=== PATIENT | male | born 1995 | race Caucasian/White ===

== ENCOUNTER 2017-11-02 01:14 | Emergency (ER) | payer SELFPAY ==
[2017-11-02 01:37] VITALS: TEMP 98
[2017-11-02] MEDS: SODIUM CHLORIDE 0.9% 1000ML 1,000 ML IVS ONE ×2 (01:47→03:02)
[2017-11-02] MEDS: ACTIVATED CHARCOAL PELLETS 25 GM BTTL PO ONE (02:46)
[2017-11-02] MEDS: PEG-ELECTROLYTE 4,000 ML BTTL PO ONE (02:46)
--- NOTE | 2017-11-02 02:55 | ED.PDOC ---
History of Present Illness - General Chief Complaint: GI Problem Stated Complaint: diarrhea Time Seen by Provider: 11/02/17 02:18 Information Source: patient Exam Limitations: no limitations - History of Present Illness Abdominal Pain Onset Location: generalized abdomen Pain Radiation: no radiation Quality: mild Timing/Duration: constant - FOR 4 DAYS Improving Factors: nothing Worsening Factors: nothing Associated Symptoms: diarrhea, other - has been using meth as recently as yesterday Review of Systems - Review of Systems Constitutional: States: weakness EENTM: States: no symptoms reported Respiratory: States: no symptoms reported Cardiology: States: no symptoms reported Gastrointestinal/Abdominal: States: abdominal pain, diarrhea. Denies: nausea, vomiting Genitourinary: States: other - DECREASED URINE OUTPUT. Denies: dysuria, frequency, hematuria Musculoskeletal: States: no symptoms reported Skin: States: no symptoms reported Neurological: States: no symptoms reported Endocrine: States: no symptoms reported Past Medical History (General) - Patient Medical History Hx Cardiac Disorders: Yes - heart murmur Hx Diabetes: No Hx Hepatitis C: Yes Surgical History: no surgical history - Vaccination History Immunizations Up to Date: No - Social History Hx Substance Use: Yes - methamphetamines - Triage Comment ED Triage Comment: denies vomiting, states just diarrhea for several days, poor urine output. Family Medical History - Family History Mother Living Status: Physical Exam - Physical Exam General Appearance: Alert, Comfortable Eyes, Ears, Nose, Throat Exam: PERRL/EOMI, pharynx normal, other - dry mucosa Neck: non-tender, full range of motion, supple Respiratory: lungs clear, normal breath sounds Cardiovascular/Chest: normal peripheral pulses, regular rate, rhythm, no edema Gastrointestinal/Abdominal: normal bowel sounds, non tender, soft Neurologic: no motor/sensory deficits, alert, normal mood/affect, oriented x 3 Skin Exam: normal color, warm/dry Departure - Departure Clinical Impression: Drug abuse, amphetamine type, Dehydration Diarrhea Qualifiers: Diarrhea type: unspecified type Qualified Code(s): R19.7 - Diarrhea, unspecified Disposition: Discharge to Home or Self Care Departure Forms: ED Discharge - Pt. Copy, Patient Portal Self Enrollment Prescriptions: Dicyclomine HCl [Bentyl] 20 mg PO Q6HR PRN #15 tab PRN Reason: Diarrhea Home Medications: Ambulatory Orders Dicyclomine HCl [Bentyl] 20 mg PO Q6HR PRN #15 tab 11/02/17
[2017-11-02] MEDS: DICYCLOMINE HCL 20 MG TAB PO ONE (03:02)
[2017-11-02 03:59] VITALS: BP 114/68; O2SAT 100
== END 2017-11-02 03:58 | disposition home or self-care (01) ==
LOC: ER 01:14
DX: E86.0 Dehydration (principal); R19.7 Diarrhea, unspecified; F15.10 Other stimulant abuse, uncomplicated; R01.1 Cardiac murmur, unspecified; Z86.19 Personal history of other infectious and parasitic diseases
CPT/HCPCS: 36415; 80053; 81001; 82150; 83690; 85025; J7030

== ENCOUNTER 2018-04-21 09:19 | Emergency (ER) | payer SELFPAY ==
[2018-04-21] MEDS ORDERED: AZITHROMYCIN 250 MG TAB PO ONE (09:39)
[2018-04-21] MEDS ORDERED: DOXYCYCLINE HYCLATE CAP 100 MG CAP PO ONE (09:39)
[2018-04-21] MEDS ORDERED: cefTRIAXone SODIUM 1 GM VIAL IM ONE (09:39)
[2018-04-21 09:44] VITALS: BP 137/79; TEMP 98.9; O2SAT 100
--- NOTE | 2018-04-21 09:50 | ED.PDOC ---
History of Present Illness - General Chief Complaint: Problem Stated Complaint: Swollen testicles Time Seen by Provider: 04/21/18 09:24 Source: patient Exam Limitations: no limitations - History of Present Illness Initial Comments: The patient is a 23-year-old male presenting to emergency room secondary to dysuria for the last 2-3 weeks. He is concerned he may have an STD. He has had a mild amount of purulent drainage from the urethra. He is now also having pain in the left epididymis. No fevers. Timing/Duration: unsure Severity: moderate Improving Factors: nothing Worsening Factors: nothing Associated Symptoms: denies symptoms Allergies/Adverse Reactions: Allergies NO KNOWN ALLERGY Allergy (Verified 11/02/17 01:37) Home Medications: Ambulatory Orders Dicyclomine HCl [Bentyl] 20 mg PO Q6HR PRN #15 tab 11/02/17 Doxycycline (Monohydrate) [Doxycycline] 100 mg PO BID #14 cap 04/21/18 Review of Systems - Review of Systems Constitutional: States: no symptoms reported EENTM: States: no symptoms reported Respiratory: States: no symptoms reported Cardiology: States: no symptoms reported Gastrointestinal/Abdominal: States: no symptoms reported Genitourinary: States: discharge, dysuria, frequency, pain Musculoskeletal: States: no symptoms reported Skin: States: no symptoms reported Neurological: States: no symptoms reported Endocrine: States: no symptoms reported All other Systems: No Change from Baseline Past Medical History (General) - Patient Medical History Hx Stroke: No Hx Cardiac Disorders: Yes - Heart murmur Hx Congestive Heart Failure: No Hx Diabetes: No Hx Hepatitis C: Yes Surgical History: no surgical history - Vaccination History Hx Influenza Vaccination: No - Social History Hx Tobacco Use: Yes Hx Substance Use: Yes - methamphetamines Family Medical History - Family History Mother Living Status: Physical Exam - Physical Exam General Appearance: Alert, Comfortable, No apparent distress Eye Exam: bilateral normal Ears, Nose, Throat: hearing grossly normal, normal ENT inspection, normal pharynx Neck: full range of motion, supple Respiratory: lungs clear, normal breath sounds, no respiratory distress, no accessory muscle use Cardiovascular/Chest: normal peripheral pulses, no edema, tachycardia - sinus Peripheral Pulses: radial,right: 2+, radial,left: 2+, dorsalis pedis,right: 2+, dorsalis pedis,left: 2+ Gastrointestinal/Abdominal: non tender, soft Rectal Exam: other - left epididymis is tender. Back Exam: no CVA tenderness, no vertebral tenderness Extremity: non-tender, normal inspection, normal capillary refill Neurologic: summer intern II-XII nml as tested, alert, normal mood/affect, oriented x 3 Skin Exam: normal color - multiple tattoos Comments: Vital Signs - 24 hr 04/21/18 09:36 Temperature 98.9 F Pulse Rate [ 123 H Left Brachial] Respiratory 20 Rate Blood Pressure 137/79 [Left Arm] O2 Sat by Pulse 100 Oximetry Progress - Progress Progress: 04/21/18 09:50 the patient is a 23-year-old male presenting with what appears to be epididymitis and likely urethritis. He'll be treated empirically for gonorrhea and chlamydia. This test is being sent out. I would recommend that he follow- up with the public health department for more comprehensive STD testing as he is apparently high risk. He was given a dose of Rocephin and azithromycin and doxycycline here. He'll be placed on doxycycline for the next 7 days as an outpatient. He does need to abstain from intercourse until his regimen is completed and his partners are tested. Departure - Departure Clinical Impression: Epididymitis, Urethritis Disposition: Discharge to Home or Self Care Condition: Fair Departure Forms: ED Discharge - Pt. Copy, Patient Portal Self Enrollment Instructions: Urethritis (DC), Epididymitis (DC) Diet: regular diet Activity: increase activity as tolerated Prescriptions: Doxycycline (Monohydrate) [Doxycycline] 100 mg PO BID #14 cap Home Medications: Ambulatory Orders Dicyclomine HCl [Bentyl] 20 mg PO Q6HR PRN #15 tab 11/02/17 Doxycycline (Monohydrate) [Doxycycline] 100 mg PO BID #14 cap 04/21/18 Additional Instructions: the patient is a 23-year-old male presenting with what appears to be epididymitis and likely urethritis. He'll be treated empirically for gonorrhea and chlamydia. This test is being sent out. I would recommend that he follow- up with the public health department for more comprehensive STD testing as he is apparently high risk. He was given a dose of Rocephin and azithromycin and doxycycline here. He'll be placed on doxycycline for the next 7 days as an outpatient. He does need to abstain from intercourse until his regimen is completed and his partners are tested.
== END 2018-04-21 10:09 | disposition home or self-care (01) ==
LOC: ER 09:19
DX: N45.1 Epididymitis (principal); N34.2 Other urethritis; Z86.19 Personal history of other infectious and parasitic diseases; Z87.891 Personal history of nicotine dependence
CPT/HCPCS: 81001; 87086; 87491; 87591; J0696; Q0144

== ENCOUNTER 2019-05-22 11:41 | Emergency (ER) | payer SELFPAY ==
[2019-05-22 12:18] VITALS: BP 145/98; TEMP 97; O2SAT 98
[2019-05-22] MEDS ORDERED: SULFA/TRIMETH 800/160 (DS) TAB 1 EA TAB PO ONE (13:01)
--- NOTE | 2019-05-22 13:04 | ED.PDOC ---
History of Present Illness - General Chief Complaint: Skin/Abrasion/Tear Stated Complaint: swollen area on knee x 1 week Time Seen by Provider: 05/22/19 13:01 Source: patient Exam Limitations: no limitations - History of Present Illness Initial Comments: the patient is a 24-year-old male presenting to emergency room secondary to an area of cellulitis over his right knee that does have some mild extending erythema. Erythema started extending about 24 hours ago. The abrasion over the knee itself is about 45 days old. He does have multiple other abrasions from an incident around that time. He is also currently getting over a cold. His main concern is the extending erythema around the knee abrasion itself. It does appear that it has drained already a little bit. No evidence of any abscess formation that needs drainage at this time. He does appear to be neurovascularly preserved. Timing/Duration: 24 hours Severity: mild Improving Factors: nothing Worsening Factors: nothing Associated Symptoms: malaise Allergies/Adverse Reactions: Allergies NO KNOWN ALLERGY Allergy (Verified 05/22/19 12:14) Home Medications: Ambulatory Orders Sulfa/Trimeth 800/160 (Ds) Tab [Bactrim DS Tab] 1 ea PO BID #14 tab 05/22/19 Review of Systems - Review of Systems Constitutional: States: malaise EENTM: States: nose congestion Respiratory: States: no symptoms reported Cardiology: States: no symptoms reported Gastrointestinal/Abdominal: States: no symptoms reported Genitourinary: States: no symptoms reported Musculoskeletal: States: see HPI Skin: States: see HPI Neurological: States: no symptoms reported Endocrine: States: no symptoms reported All other Systems: No Change from Baseline Past Medical History (General) - Patient Medical History Hx Seizures: No Hx Stroke: No Hx Dementia: No Hx Asthma: No Hx of COPD: No Hx Cardiac Disorders: No Hx Congestive Heart Failure: No Hx Pacemaker: No Hx Hypertension: No Hx Thyroid Disease: No Hx Diabetes: No Hx Gastroesophageal Reflux: No Hx Renal Disease: No Hx Cancer: No Hx of HIV: No Hx Hepatitis C: No Hx MRSA: No Surgical History: no surgical history - Vaccination History Hx Tetanus, Diphtheria Vaccination: Yes - 2016 tdcj Hx Influenza Vaccination: No Hx Pneumococcal Vaccination: No Immunizations Up to Date: No - Social History Hx Tobacco Use: Yes Hx Chewing Tobacco Use: No Hx Alcohol Use: Yes Hx Substance Use: Yes - iv meth use, last use 1 day ago Hx Depression: Yes Feels Threatened In a Relationship: No Hx Physical Abuse: No Hx Emotional Abuse: No Hx Suspected Abuse: No Family Medical History - Family History Mother Family History: No Known Living Status: Hx Family Asthma: No Hx Family Congestive Heart Failure: No Hx Family Hypertension: No Physical Exam - Physical Exam General Appearance: Alert, Comfortable, No apparent distress Eye Exam: bilateral normal Ears, Nose, Throat: hearing grossly normal, nasal congestion, other - healing abrasion over the bridge of his nose. Neck: full range of motion Respiratory: no respiratory distress, no accessory muscle use Cardiovascular/Chest: normal peripheral pulses, no edema Peripheral Pulses: dorsalis pedis,right: 2+, dorsalis pedis,left: 2+ Rectal Exam: deferred Extremity: normal range of motion, no pedal edema, no calf tenderness, normal capillary refill Neurologic: chief concierge II-XII nml as tested, alert, normal mood/affect, oriented x 3 Skin Exam: other - see history of present illness. Comments: Vital Signs - 8 hr 05/22/19 12:15 Temperature 97 F L Pulse Rate [ 100 H Left Radial] Respiratory 20 Rate Blood Pressure 145/98 [Left Arm] O2 Sat by Pulse 98 Oximetry Progress - Progress Progress: 05/22/19 13:04 the patient is a 24-year-old male presenting to emergency room secondary to a right knee abrasion with superimposed cellulitis. No evidence of abscess formation at this time. Is wanting placed on Bactrim twice daily for the next 7 days which he does need to take with food prevent stomach upset. He does need to trace the area of erythema with a marker when he gets home. If this is extending even past the next 24 hours then he will need a repeat evaluation. Keep well hydrated. ER warnings were given. Wash the area with Dial soap and water a couple of times daily and cover with a triple antibiotic ointment and a Band-Aid. [id number] [id number] Departure - Departure Clinical Impression: Cellulitis Qualifiers: Site of cellulitis: extremity Site of cellulitis of extremity: lower extremity Laterality: right Qualified Code(s): L03.115 - Cellulitis of right lower limb Disposition: Discharge to Home or Self Care Condition: Fair Departure Forms: ED Discharge - Pt. Copy, Patient Portal Self Enrollment Instructions: DI for Wound Infection Diet: regular diet Activity: increase activity as tolerated Referrals: UNKNOWN,PHYSICIAN [Primary Care Provider] - 1-2 Weeks Prescriptions: Sulfa/Trimeth 800/160 (Ds) Tab [Bactrim DS Tab] 1 ea PO BID #14 tab Home Medications: Ambulatory Orders Sulfa/Trimeth 800/160 (Ds) Tab [Bactrim DS Tab] 1 ea PO BID #14 tab 05/22/19 Additional Instructions: the patient is a 24-year-old male presenting to emergency room secondary to a right knee abrasion with superimposed cellulitis. No evidence of abscess formation at this time. Is wanting placed on Bactrim twice daily for the next 7 days which he does need to take with food prevent stomach upset. He does need to trace the area of erythema with a marker when he gets home. If this is extending even past the next 24 hours then he will need a repeat evaluation. Keep well hydrated. ER warnings were given. Wash the area with Dial soap and water a couple of times daily and cover with a triple antibiotic ointment and a Band-Aid.
== END 2019-05-22 13:39 | disposition home or self-care (01) ==
LOC: ER 11:41
DX: L03.115 Cellulitis of right lower limb (principal); S80.211A Abrasion, right knee, initial encounter; F32.9 Major depressive disorder, single episode, unspecified; Z87.891 Personal history of nicotine dependence; X58.XXXA Exposure to other specified factors, initial encounter; Y92.9 Unspecified place or not applicable

== ENCOUNTER 2019-06-18 23:03 | Emergency (ER) | payer SELFPAY ==
[2019-06-18] MEDS ORDERED: PENICILLIN BENZATHINE 1.2 MU 1.2 MU/2 ML SYG IM ONE (23:38)
[2019-06-18] MEDS ORDERED: DOXYCYCLINE HYCLATE CAP 100 MG CAP PO ONE (23:40)
--- NOTE | 2019-06-18 23:43 | ED.PDOC ---
History of Present Illness - General Chief Complaint: Skin/Abrasion/Tear Stated Complaint: genital sore Time Seen by Provider: 06/18/19 23:37 Additional Information: this is a meth user, smoker, hisotory hepatitis c, patient present with a pain less ulcer and an elarged inguinal lymph node for 3 weeks, patient has had hepres in the past and his partner has had herpes and he think that this is diferent. no skin rash. patient has had unprotected sex in the past - History of Present Illness Timing/Duration: other - 3weeks Severity: moderate Worsening Factors: nothing Associated Symptoms: denies symptoms Allergies/Adverse Reactions: Allergies NO KNOWN ALLERGY Allergy (Verified 05/22/19 12:14) Home Medications: Ambulatory Orders Doxycycline (Monohydrate) [Doxycycline] 100 mg PO BID #28 tab 06/19/19 Review of Systems - Review of Systems Constitutional: Denies: diaphoresis, fever, malaise, weakness EENTM: Denies: eye pain, blurred vision, tearing, double vision, ear pain, ear discharge, nose pain, nose congestion, throat pain, throat swelling, mouth pain, mouth swelling Respiratory: Denies: cough, orthopnea, short of breath, stridor, wheezing Cardiology: Denies: see HPI, chest pain, edema, palpitations, syncope Gastrointestinal/Abdominal: Denies: see HPI, abdominal pain, constipation, d iarrhea, nausea, vomiting Musculoskeletal: Denies: see HPI, back pain, gout, joint pain, joint swelling, muscle pain, muscle stiffness, neck pain Skin: Denies: change in color, change in hair/nails, dryness, lesions, lumps, rash, other Neurological: Denies: anxiety, depressed, emotional problems, headache, numbness, paresthesia, pre-existing deficit, seizure, tingling, tremors, weakness Endocrine: Denies: excessive sweating, flushing, intolerance to cold, intolerance to heat, increased hunger, increased thirst, increased urine, unexplained weight gain, unexplained weight loss Hematologic/Lymphatic: Denies: anemia, blood clots, easy bleeding, easy bruising, swollen glands All other Systems: Reviewed and Negative Past Medical History (General) - Patient Medical History Hx Seizures: No Hx Stroke: No Hx Dementia: No Hx Asthma: No Hx of COPD: No Hx Cardiac Disorders: Yes - heart murmer Hx Congestive Heart Failure: No Hx Pacemaker: No Hx Hypertension: No Hx Thyroid Disease: No Hx Diabetes: No Hx Gastroesophageal Reflux: No Hx Renal Disease: No Hx Cancer: No Hx of HIV: No Hx Hepatitis C: Yes Hx MRSA: No - Vaccination History Hx Tetanus, Diphtheria Vaccination: Yes - 2017 tdcj Hx Influenza Vaccination: No Hx Pneumococcal Vaccination: No Immunizations Up to Date: No - Social History Hx Tobacco Use: Yes Hx Chewing Tobacco Use: No Hx Alcohol Use: Yes Hx Substance Use: Yes Hx Depression: Yes Hx Physical Abuse: No Hx Emotional Abuse: No Hx Suspected Abuse: No Family Medical History - Family History Mother Family History: No Known Living Status: Hx Family Asthma: No Hx Family Congestive Heart Failure: No Hx Family Hypertension: No Physical Exam - Physical Exam General Appearance: Alert, Well Developed, Well Groomed, Well Hydrated Eye Exam: bilateral normal Ears, Nose, Throat: hearing grossly normal, normal ENT inspection, normal pharynx Neck: non-tender, full range of motion, supple, normal inspection Respiratory: chest non-tender, lungs clear, normal breath sounds, no respiratory distress, no accessory muscle use Cardiovascular/Chest: normal peripheral pulses, regular rate, rhythm, no edema, no gallop Peripheral Pulses: radial,right: 2+ Gastrointestinal/Abdominal: normal bowel sounds, non tender, soft, no organomegaly, no pulsatile mass, other - isolated painless ulcerated lesion on the shaft of penis Back Exam: normal inspection Extremity: normal range of motion, non-tender, normal inspection Neurologic: cyberathlete II-XII nml as tested, no motor/sensory deficits, alert Skin Exam: normal color Lymphatic: other - right inguinal node Progress - Progress Progress: 06/18/19 23:59 I suspect an std that this patient has an isolated painless genital lesion, with an enlarged lymph node that is very consistent with Syphilis, patient was treated in the er for primary syphilis with pencilling and discharge home with follow up at std clinic patient was counseled about unprotected sex, since his partner has had herpes in the past and but patient has had herpes but it has never presented like this lesion. patient was also counseled for meth use and the danger of these drugs 06/19/19 00:07 rpr will be ordered Departure - Departure Clinical Impression: STD (male), Concern about STD in male without diagnosis, Syphilis in male Disposition: Discharge to Home or Self Care Condition: Fair Departure Forms: ED Discharge - Pt. Copy, Patient Portal Self Enrollment Instructions: DI for Abrasion, Syphilis, Condom Options Diet: full liquid diet Prescriptions: Doxycycline (Monohydrate) [Doxycycline] 100 mg PO BID #28 tab Home Medications: Ambulatory Orders Doxycycline (Monohydrate) [Doxycycline] 100 mg PO BID #28 tab 06/19/19
[2019-06-19 00:41] VITALS: BP 128/81; TEMP 98.4; O2SAT 99
== END 2019-06-19 00:39 | disposition home or self-care (01) ==
LOC: ER 23:03
DX: A53.9 Syphilis, unspecified (principal); R01.1 Cardiac murmur, unspecified; F32.9 Major depressive disorder, single episode, unspecified; F17.200 Nicotine dependence, unspecified, uncomplicated; Z86.19 Personal history of other infectious and parasitic diseases
CPT/HCPCS: 86592; J0561